=== PATIENT | female | born 1955 | race African-American/Black ===

== ENCOUNTER 2018-08-17 20:19 | Emergency (ER) | payer BC ==
[~2018-08-17] VITALS: Ht 167.6 cm; Wt 78.0 kg
[2018-08-17] MEDS ORDERED: DIPHENHYDRAMINE 50MG/ML VIAL IV ONE (23:30)
[2018-08-17] MEDS ORDERED: DEXAMETHASONE 10 MG/ML VIAL IV ONE (23:30)
[2018-08-17] MEDS ORDERED: FAMOTIDINE 20MG/2ML VIAL IV ONE (23:30)
[2018-08-18 01:24] VITALS: BP 154/84
== END 2018-08-18 01:26 | disposition home or self-care (01) ==
LOC: ER 20:19
DX: T78.40XA Allergy, unspecified, initial encounter (principal); X58.XXXA Exposure to other specified factors, initial encounter; I10 Essential (primary) hypertension
CPT/HCPCS: 96374; 96375; 99283; J1100; J1200; J3490